=== PATIENT | female | born 1935 | race African-American/Black ===

== ENCOUNTER 2021-01-03 05:51 | Inpatient (IN) | payer OTHER ==
[~2021-01-03] VITALS: Ht 162.6 cm; Wt 67.2 kg
[2021-01-03 06:46] LABS: HEMATOCRIT. 42.8 % (36.0-48.0); HEMOGLOBIN. 13.9 g/dL (12.0-16.0); MEAN CORPUSCULAR HEMOGLOBIN 28.3 pg (28.0-32.0); MEAN CORPUSCULAR VOLUME 87.3 fL (81.0-99.0); MEAN PLATELET VOLUME 7.6 fl (7.4-10.4); PLATELET 319 x1000/uL (130-400); RED CELL DISTRIBUTION WIDTH 14.7 % (11.6-14.6)
[2021-01-03 06:49] LABS: CHLORIDE 111 mEq/L (98-107)
[2021-01-03 06:52] LABS: PARTIAL THROMBOPLASTIN TIME 26.8 sec (23.4-31.0); PROTHROMBIN TIME 10.6 sec (9.6-11.0)
[2021-01-03] MEDS ORDERED: BACITRACIN ZINC OINT UDPKT TOP ONE (07:00)
[2021-01-03] MEDS ORDERED: LIDOCAINE HCL/EPINEPHRINE 1%-EPI 1:100,000 20 ML VIAL INFIL ONE (07:00)
[2021-01-03 08:00] LABS: PLATELET ESTIMATE NORMAL
[2021-01-03] MEDS ORDERED: ASPIRIN 81MG TABLET PO ONE (08:15)
[2021-01-03 08:41] LABS: CREATINE KINASE 554 IU/L (26-192)
[2021-01-03] MEDS ORDERED: CLONIDINE 0.1MG TABLET PO PRN (12:00)
[2021-01-03] MEDS ORDERED: GUAIFENESIN 200MG/10ML SUGAR FREE UDC PO PRN (12:00)
[2021-01-03] MEDS ORDERED: NA PHOS,M-B/NA PHOS,DI-BA ENEMA 118ML PR PRN (12:00)
[2021-01-03] MEDS ORDERED: HYDROCODONE/ACETAMINOPHEN 5/325MG TABLET PO PRN (12:00)
[2021-01-03] MEDS ORDERED: DOCUSATE SODIUM 100MG CAPSULE PO PRN (12:00)
[2021-01-03] MEDS ORDERED: LORAZEPAM 2MG/ML CPJ IV PRN (12:00)
[2021-01-03] MEDS ORDERED: ONDANSETRON HCL 4MG/2ML INJ IV PRN (12:00)
[2021-01-03] MEDS ORDERED: MAGNESIUM/ALUMINUM HYDROXIDE/SIMETHICONE 30ML UDC PO PRN (12:00)
[2021-01-03] MEDS ORDERED: ACETAMINOPHEN 325MG TABLET PO PRN (12:00)
[2021-01-03] MEDS ORDERED: IPRATROPIUM/ALBUTEROL 0.5-3(2.5)MG/3ML NEB NEB PRN (12:00)
[2021-01-03] MEDS: SODIUM CHLORIDE 0.45% 1,000 ML IV SCH (12:24)
[2021-01-03] MEDS ORDERED: ENOXAPARIN 30MG/0.3ML SYR SUBCUT SCH (12:30)
[2021-01-03] MEDS ORDERED: NALOXONE HCL 0.4MG/ML VIAL IV PRN (13:30)
[2021-01-03 14:30] VITALS: BP_SYST 140; BP_DIAS 70; BP_DIAS 76
[2021-01-03 16:00] VITALS: BP 137/74
[2021-01-03 17:54] LABS: CHLORIDE 108 mEq/L (98-107)
[2021-01-03 20:00] VITALS: BP 107/61
[2021-01-03] MEDS: ATORVASTATIN CALCIUM 40MG TABLET PO SCH (21:05)
[2021-01-04] VITALS: BP 118/71
[2021-01-04] MEDS: SODIUM CHLORIDE 0.45% 1,000 ML IV SCH ×2 (00:53→22:30)
[2021-01-04 04:00] VITALS: BP 112/70
[2021-01-04 07:22] LABS: BASOPHILS % 0.5 % (0.0-2.0); EOSINOPHILS % 4.5 % (0.0-5.0); HEMATOCRIT. 39.5 % (36.0-48.0); HEMOGLOBIN. 12.9 g/dL (12.0-16.0); LYMPHOCYTES % 23.1 % (20.0-50.0); MEAN CORPUSCULAR HEMOGLOBIN 28.3 pg (28.0-32.0); MEAN CORPUSCULAR VOLUME 86.3 fL (81.0-99.0); MEAN PLATELET VOLUME 7.5 fl (7.4-10.4); MONOCYTES % 12.2 % (2.0-8.0); NEUTROPHILS % 59.7 % (40.0-76.0); PLATELET 292 x1000/uL (130-400); RED BLOOD CELL COUNT 4.57 mill/uL (4.2-5.4); RED CELL DISTRIBUTION WIDTH 14.4 % (11.6-14.6)
[2021-01-04 07:30] LABS: CHLORIDE 109 mEq/L (98-107)
[2021-01-04 07:42] LABS: LDL CHOLESTEROL 78 mg/dL (5-100)
[2021-01-04 07:44] LABS: HDL CHOLESTEROL 56 mg/dL (40-59)
[2021-01-04 08:00] VITALS: BP 120/66
[2021-01-04] MEDS: ENOXAPARIN 40MG/0.4ML SYR SUBCUT SCH (09:31)
[2021-01-04] MEDS: ASPIRIN 81MG EC TABLET PO SCH (09:31)
[2021-01-04 12:00] VITALS: BP 121/71
[2021-01-04 16:00] VITALS: BP 118/68
[2021-01-04 20:00] VITALS: BP 146/83
[2021-01-04] MEDS: ATORVASTATIN CALCIUM 40MG TABLET PO SCH (22:28)
[2021-01-05] VITALS: BP 140/85
[2021-01-05 07:00] LABS: CHLORIDE 111 mEq/L (98-107)
[2021-01-05 07:12] LABS: BASOPHILS % 0.6 % (0.0-2.0); EOSINOPHILS % 5.2 % (0.0-5.0); LYMPHOCYTES % 26.5 % (20.0-50.0); MEAN CORPUSCULAR HEMOGLOBIN 28.3 pg (28.0-32.0); MEAN CORPUSCULAR VOLUME 87.1 fL (81.0-99.0); MEAN PLATELET VOLUME 7.7 fl (7.4-10.4); NEUTROPHILS % 53.7 % (40.0-76.0); PLATELET 292 x1000/uL (130-400); RED BLOOD CELL COUNT 4.25 mill/uL (4.2-5.4); RED CELL DISTRIBUTION WIDTH 14.2 % (11.6-14.6)
[2021-01-05 08:00] VITALS: BP 128/72
[2021-01-05] MEDS: ENOXAPARIN 40MG/0.4ML SYR SUBCUT SCH (08:52)
[2021-01-05] MEDS: ASPIRIN 81MG EC TABLET PO SCH (08:52)
[2021-01-05 12:00] VITALS: BP 118/60
[2021-01-05] MEDS: SODIUM CHLORIDE 0.45% 1,000 ML IV SCH (14:00)
[2021-01-05 14:44] LABS: CLARITY URINE CLEAR (CLEAR); COLOR URINE YELLOW (YELLOW); KETONES URINE NEGATIVE (NEGATIVE); LEUKOCYTE ESTERASE URINE 2+ (NEGATIVE); NITRITE URINE NEGATIVE (NEGATIVE); OCCULT BLOOD URINE TRACE (NEGATIVE); PH URINE 5.5 (4.5-8.0); PROTEIN URINE NEGATIVE (NEGATIVE); SPECIFIC GRAVITY URINE 1.009 (1.005-1.030); UROBILINOGEN URINE 0.2 E.U./dL (0.2-1.0)
[2021-01-05 16:00] VITALS: BP 124/74
[2021-01-05 16:18] VITALS: BP 118/60
== END 2021-01-05 17:00 | disposition home health service (06) | DRG 280 ==
LOC: ER 05:51 → 6WST 08:33 → EDBEDREQTM 08:44 → EDBEDREQ 08:44 → ENRESERV 13:19
PROVIDERS: ADMIT Internal Medicine; ATTEND Internal Medicine
DX: I21.4 Non-ST elevation (NSTEMI) myocardial infarction (principal); G93.41 Metabolic encephalopathy; E46 Unspecified protein-calorie malnutrition; F02.80 Dementia in other diseases classified elsewhere, unspecified severity, without behavioral disturbance, psychotic disturbance, mood disturbance, and anxiety; G30.9 Alzheimer's disease, unspecified; I50.9 Heart failure, unspecified; I11.0 Hypertensive heart disease with heart failure; E11.9 Type 2 diabetes mellitus without complications; E86.0 Dehydration; D64.9 Anemia, unspecified; I16.0 Hypertensive urgency; R00.1 Bradycardia, unspecified; S01.91XA Laceration without foreign body of unspecified part of head, initial encounter; W01.0XXA Fall on same level from slipping, tripping and stumbling without subsequent striking against object, initial encounter; Z68.25 Body mass index [BMI] 25.0-25.9, adult; Y93.89 Activity, other specified; Y92.091 Bathroom in other non-institutional residence as the place of occurrence of the external cause; Y99.8 Other external cause status
CPT/HCPCS: 36415; 71045; 80048; 80053; 80061; 81003; 82550; 83880; 84484; 85025; 93005; 93306; 99291; J1650; J3490

== ENCOUNTER 2021-10-18 12:40 | Emergency (ER) | payer OTHER ==
[~2021-10-18] VITALS: Ht 170.2 cm; Wt 62.0 kg
[2021-10-18 15:31] LABS: BASOPHILS % 0.3 % (0.0-2.0); EOSINOPHILS % 1.4 % (0.0-5.0); HEMATOCRIT. 40.8 % (36.0-48.0); HEMOGLOBIN. 13.7 g/dL (12.0-16.0); LYMPHOCYTES % 13.9 % (20.0-50.0); MEAN CORPUSCULAR HEMOGLOBIN 29.2 pg (28.0-32.0); MEAN CORPUSCULAR VOLUME 87.1 fL (81.0-99.0); MEAN PLATELET VOLUME 7.6 fl (7.4-10.4); MONOCYTES % 10.4 % (2.0-8.0); PLATELET 329 x1000/uL (130-400); RED BLOOD CELL COUNT 4.68 mill/uL (4.2-5.4); RED CELL DISTRIBUTION WIDTH 14.5 % (11.6-14.6)
[2021-10-18 15:42] LABS: CHLORIDE 108 mEq/L (98-107)
[2021-10-18] MEDS ORDERED: SODIUM CHLORIDE 0.9% 250 ML IV ONE (16:45)
[2021-10-18 21:40] LABS: CLARITY URINE CLEAR (CLEAR); COLOR URINE YELLOW (YELLOW); KETONES URINE 1+ (NEGATIVE); LEUKOCYTE ESTERASE URINE NEGATIVE (NEGATIVE); NITRITE URINE NEGATIVE (NEGATIVE); OCCULT BLOOD URINE 1+ (NEGATIVE); PROTEIN URINE TRACE (NEGATIVE); SPECIFIC GRAVITY URINE 1.016 (1.005-1.030); UROBILINOGEN URINE 0.2 E.U./dL (0.2-1.0)
[2021-10-19] VITALS: BP 144/82
== END 2021-10-19 01:07 | disposition short-term general hospital (02) ==
LOC: ER 12:43
DX: I51.7 Cardiomegaly (principal); F03.90 Unspecified dementia, unspecified severity, without behavioral disturbance, psychotic disturbance, mood disturbance, and anxiety; I10 Essential (primary) hypertension; Z88.0 Allergy status to penicillin; Z20.822 Contact with and (suspected) exposure to COVID-19
CPT/HCPCS: 36415; 70450; 71045; 72125; 72170; 72192; 80053; 81003; 83605; 83690; 83880; 84484; 85025; 87426; 93005; 96360; 99285; C9803; J7050

== ENCOUNTER 2023-09-29 12:00 | Emergency (ER) | payer OTHER ==
[~2023-09-29] VITALS: Ht 165.1 cm; Wt 41.0 kg
[2023-09-29 12:02] VITALS: O2SAT 98
[2023-09-29 12:53] LABS: BASOPHILS % 0.7 % (0.0-2.0); EOSINOPHILS % 4.8 % (0.0-5.0); HEMATOCRIT. 38.8 % (36.0-48.0); HEMOGLOBIN. 12.6 g/dL (12.0-16.0); LYMPHOCYTES % 28.7 % (20.0-50.0); MEAN CORPUSCULAR HEMOGLOBIN 28.9 pg (28.0-32.0); MEAN CORPUSCULAR HGB CONC 32.5 g/dL (31.0-37.0); MEAN CORPUSCULAR VOLUME 88.9 fL (81.0-99.0); MEAN PLATELET VOLUME 7.7 fl (7.4-10.4); MONOCYTES % 14.9 % (2.0-8.0); NEUTROPHILS % 50.9 % (40.0-76.0); PLATELET 306 x1000/uL (130-400); RED BLOOD CELL COUNT 4.36 mill/uL (4.2-5.4); RED CELL DISTRIBUTION WIDTH 14.9 % (11.6-14.6); WHITE BLOOD COUNT 5.4 x1000/uL (4.5-11.0)
[2023-09-29 13:03] LABS: CHLORIDE 110 mEq/L (98-107); POTASSIUM 3.9 mEq/L (3.5-5.1); SODIUM 142 mEq/L (136-145)
[2023-09-29 13:04] LABS: CARBON DIOXIDE 25 mEq/L (21-32)
[2023-09-29 13:05] LABS: CALCIUM 9.2 mg/dL (8.7-10.4)
[2023-09-29 13:09] LABS: CREATININE 1.1 mg/dL (0.6-1.0); GLUCOSE 78 mg/dL (70-105); TROPONIN I HIGH SENSITIVITY 4 ng/L (3.0-34)
[2023-09-29 13:10] LABS: UREA NITROGEN BLOOD 14 mg/dL (9-23)
[2023-09-29] MEDS: SODIUM CHLORIDE 0.9% 1,000 ML IV ONE (13:44)
[2023-09-29 13:47] VITALS: TEMP 98
[2023-09-29 14:28] LABS: CLARITY URINE CLEAR (CLEAR); COLOR URINE YELLOW (YELLOW); GLUCOSE URINE NEGATIVE (NEGATIVE); KETONES URINE NEGATIVE (NEGATIVE); LEUKOCYTE ESTERASE URINE NEGATIVE (NEGATIVE); NITRITE URINE NEGATIVE (NEGATIVE); OCCULT BLOOD URINE NEGATIVE (NEGATIVE); PH URINE 6.5 (4.5-8.0); PROTEIN URINE NEGATIVE (NEGATIVE); SPECIFIC GRAVITY URINE 1.021 (1.005-1.030); UROBILINOGEN URINE 0.2 E.U./dL (0.2-1.0)
[2023-09-29 15:42] LABS: *AMPHETAMINES SCREEN URINE NEGATIVE (NEGATIVE); *BARBITURATES SCREEN URINE NEGATIVE (NEGATIVE); *BENZODIAZEPINES SCREEN URINE NEGATIVE (NEGATIVE); *COCAINE SCREEN URINE NEGATIVE (NEGATIVE); CANNABINOID URINE SCREEN NEGATIVE (NEGATIVE); METHADONE URINE SCREEN NEGATIVE (NEGATIVE); OPIATES URINE SCREEN NEGATIVE (NEGATIVE); PHENCYCLIDINE URINE SCREEN NEGATIVE (NEGATIVE)
[2023-09-29 15:43] LABS: ECSTASY MDMA SCREEN URINE NEGATIVE (NEGATIVE)
[2023-09-29 15:53] VITALS: BP 160/79; PULSE 77; RESP 12
== END 2023-09-29 15:43 | disposition left against medical advice (07) ==
LOC: ER 12:00 → EDBEDREQ 14:44 → EDBEDREQTM 14:44 → ER 15:43
DX: R55 Syncope and collapse (principal); E11.9 Type 2 diabetes mellitus without complications; I10 Essential (primary) hypertension; F03.90 Unspecified dementia, unspecified severity, without behavioral disturbance, psychotic disturbance, mood disturbance, and anxiety; Z88.0 Allergy status to penicillin
CPT/HCPCS: 99291; 70450; 71045; 80305; 80048; 83605; 85025; 84484; 36415; 93005; 81003; J7030

== ENCOUNTER 2023-11-29 12:02 | Emergency (ER) | payer OTHER ==
[~2023-11-29] VITALS: Ht 167.6 cm; Wt 90.0 kg
[2023-11-29 12:04] VITALS: O2SAT 99
[2023-11-29 13:02] LABS: BASOPHILS % 0.4 % (0.0-2.0); EOSINOPHILS % 3.5 % (0.0-5.0); HEMATOCRIT. 37.2 % (36.0-48.0); HEMOGLOBIN. 12.5 g/dL (12.0-16.0); LYMPHOCYTES % 12.7 % (20.0-50.0); MEAN CORPUSCULAR HEMOGLOBIN 29.6 pg (28.0-32.0); MEAN CORPUSCULAR HGB CONC 33.7 g/dL (31.0-37.0); MEAN CORPUSCULAR VOLUME 87.9 fL (81.0-99.0); MEAN PLATELET VOLUME 7.7 fl (7.4-10.4); MONOCYTES % 8.5 % (2.0-8.0); NEUTROPHILS % 74.9 % (40.0-76.0); PLATELET 305 x1000/uL (130-400); RED BLOOD CELL COUNT 4.23 mill/uL (4.2-5.4); RED CELL DISTRIBUTION WIDTH 14.2 % (11.6-14.6); WHITE BLOOD COUNT 5.6 x1000/uL (4.5-11.0)
[2023-11-29 13:06] LABS: CHLORIDE 106 mEq/L (98-107); POTASSIUM 3.3 mEq/L (3.5-5.1); SODIUM 138 mEq/L (136-145)
[2023-11-29 13:07] LABS: CALCIUM 9.2 mg/dL (8.7-10.4); CARBON DIOXIDE 24 mEq/L (21-32); INR 1.1; PROTHROMBIN TIME 11.7 sec (9.6-11.0)
[2023-11-29 13:12] LABS: CREATININE 1.1 mg/dL (0.6-1.0); GLUCOSE 122 mg/dL (70-105); UREA NITROGEN BLOOD 15 mg/dL (9-23)
[2023-11-29 13:30] LABS: ETHANOL BLOOD < 10 mg/dL (<10)
[2023-11-29] MEDS ORDERED: IOHEXOL-350 100 ML BOTTLE ONE (14:45)
[2023-11-29] MEDS: ASPIRIN 325MG EC TABLET PO ONE (15:00)
[2023-11-29] MEDS ORDERED: DOCUSATE SODIUM 100MG CAPSULE PO PRN (15:30)
[2023-11-29] MEDS ORDERED: IPRATROPIUM/ALBUTEROL 0.5-3(2.5)MG/3ML NEB HHN PRN (15:30)
[2023-11-29] MEDS ORDERED: MAGNESIUM/ALUMINUM HYDROXIDE/SIMETHICONE 30ML UDC PO PRN (15:30)
[2023-11-29] MEDS ORDERED: GUAIFENESIN 200MG/10ML SUGAR FREE UDC PO PRN (15:30)
[2023-11-29] MEDS ORDERED: CLONIDINE 0.1MG TABLET PO PRN (15:30)
[2023-11-29] MEDS ORDERED: ONDANSETRON HCL 4MG/2ML INJ IV PRN (15:30)
[2023-11-29] MEDS ORDERED: ACETAMINOPHEN 325MG TABLET PO PRN ×2 (15:30)
[2023-11-29] MEDS ORDERED: CALCIUM GLUCONATE 100MG/ML 10ML VIAL IV ONE (15:30)
[2023-11-29] MEDS ORDERED: ENOXAPARIN 40MG/0.4ML SYR SUBCUT SCH (15:30)
[2023-11-29] MEDS: DEXT 5%/LACTATED RINGERS 1,000 ML IV ONE (15:39)
[2023-11-29] MEDS ORDERED: DEXTROSE 50% WATER 50ML SYRINGE IV PRN (15:45)
[2023-11-29] MEDS: CALCIUM GLUCONATE 1GM PREMIX 50 ML IV SCH (16:20)
[2023-11-29] MEDS: BLOOD SUGAR DIAGNOSTIC STRIP TEST SCH (17:00)
[2023-11-29] MEDS: KCL 20MEQ/100ML PREMIX 100 ML IV NR (17:30)
[2023-11-29] MEDS ORDERED: INSULIN LISPRO 100 UNITS/ML SUBCUT SCH (18:20)
[2023-11-29 19:28] VITALS: BP 118/71; PULSE 53; RESP 13; TEMP 36.55848; O2SAT 95
[2023-11-30] MEDS ORDERED: FAMOTIDINE 20MG/2ML VIAL IV SCH (09:00)
[2023-11-30] MEDS ORDERED: MULTIVITAMINS,THER W-MINERALS TABLET PO SCH (09:00)
[2023-11-30] MEDS ORDERED: THIAMINE HCL 100MG TABLET PO SCH (09:00)
[2023-11-30] MEDS ORDERED: FOLIC ACID 1MG TABLET PO SCH (09:00)
== END 2023-11-29 20:14 | disposition short-term general hospital (02) ==
LOC: ER 12:02 → EDBEDREQ 12:16 → ER 20:14
DX: I63.9 Cerebral infarction, unspecified (principal); E11.9 Type 2 diabetes mellitus without complications; Z88.0 Allergy status to penicillin; Z85.3 Personal history of malignant neoplasm of breast
CPT/HCPCS: 80048; 80320; 82962; 83036; 83880; 83690; 83735; 85025; 85610; 36415; 71045; 70496; 70498; 70450; 93005; 96361; 96365; 99291; Q9967; J0610; J3480; G0480